=== PATIENT | male | born 2000 | race American Indian/Alaskan Native ===

== ENCOUNTER 2020-09-29 17:11 | Emergency (ER) | payer SELFPAY ==
[2020-09-29 17:29] VITALS: BP 120/69
--- NOTE | 2020-09-29 18:35 | Emergency Department Report ---
ED General Adult HPI - General Chief complaint: Eye Problems Stated complaint: IRRITATED LEFT EYE Time Seen by Provider: 09/29/20 18:28 Source: patient Mode of arrival: Ambulatory Limitations: No Limitations - History of Present Illness Initial comments: 20-year-old male patient presents emergency department with complaints of left eye redness/irritation with associated nasal congestion starting 3 days ago. No preceding fall, trauma, or injury. Patient does not wear contact lenses. He has no history of eye problems. No known sick contacts. Denies headache, diplopia, visual disturbance, cough, purulent drainage, pain with extraocular movements. Denies other complaints at this time. - Related Data Previous Rx's Medication Instructions Recorded Last Taken Type Erythromycin [Erythromycin Ophth 10 applic OP QID 5 Days #1 tube 09/29/20 Unknown Rx Oint] Allergies Allergy/AdvReac Type Severity Reaction Status Date / Time No Known Allergies Allergy Verified 09/29/20 17:29 ED Review of Systems ROS: Stated complaint: IRRITATED LEFT EYE Other details as noted in HPI Other: GENERAL: Negative for fever. EYES: Positive for redness/irritation. CARDIOVASCULAR: Negative for chest pain. PULMONARY: Negative for shortness of breath. GASTROINTESTINAL: Negative for abdominal pain. MUSCULOSKELETAL: Negative for back pain. NEUROLOGICAL: Negative for headache. INTEGUMENTARY: Negative for rash. ED Past Medical Hx - Past Medical History Previous Medical History?: No - Surgical History Past Surgical History?: No - Social History Smoking Status: Never Smoker Substance Use Type: None - Medications Home Medications: Home Medications Medication Instructions Recorded Confirmed Last Taken Type Erythromycin [Erythromycin Ophth 10 applic OP QID 5 Days #1 tube 09/29/20 Unknown Rx Oint] ED Physical Exam - General Limitations: No Limitations - Other Other exam information: General: Awake, appropriately interactive, no acute distress. Eyes: PERRL. Extraocular movements intact and painless. Conjugate gaze. Left conjunctival and sclera injection. No periorbital edema. No purulent discharge. Neck: Supple. Full range of motion intact. Cardiovascular: Normal peripheral perfusion. Pulmonary: No respiratory distress. Patient is speaking normally without use of accessory muscles. Skin: No apparent rashes or lesions. Neurological: No facial asymmetry. Speech is clear. Follows commands. Patient is alert and oriented. Musculoskeletal: Moves all four extremities spontaneously with normal range of motion. Psych: Cooperative. Appropriate mood and affect. ED Course Vital Signs 09/29/20 17:27 Temperature 99 F Pulse Rate 55 L Respiratory 20 Rate Blood Pressure 120/69 O2 Sat by Pulse 97 Oximetry ED Medical Decision Making - Medical Decision Making Differential diagnosis including but not limited to: conjunctivitis, glaucoma, foreign body, corneal abrasion subconjunctival hemorrhage, allergic rhinitis Patient presents to the emergency department with complaints of unilateral irritation/redness to his eye. No visual disturbance. Vital signs are stable. No preceding trauma. History and exam findings are consistent with acute conjunctivitis. Patient will be discharged home with prescription for antibiotic ointment and referred to local primary care provider for close outpatient follow-up. Patient expressed understanding is agreeable to plan of care. Disease transmission precautions discussed. Strict return precautions provided. History, exam, diagnostic testing, and current condition do not suggest w orrisome pathology to warrant further testing, continued ED treatment, admission, or surgical evaluation at this point. Given the low probability of a significant medical illness, it would be more likely to result in harm than benefit to perform further testing at this stage. Discussed findings, presumptive diagnosis, need for follow-up and specific signs/symptoms that should prompt immediate return to the emergency department. Instructions were explained in detail to the patient in addition to giving written discharge information. Patient expressed understanding and was given the opportunity to ask questions, all of which were satisfactorily answered prior to discharge home. Critical care attestation.: If time is entered above; I have spent that time in minutes in the direct care of this critically ill patient, excluding procedure time. ED Disposition Clinical Impression: Conjunctivitis Qualifiers: Conjunctivitis type: acute Acute conjunctivitis type: unspecified Laterality: left Qualified Code(s): H10.32 - Unspecified acute conjunctivitis, left eye Disposition: DC-01 TO HOME OR SELFCARE Is pt being admited?: No Does the pt Need Aspirin: No Condition: Stable Instructions: How to Use Eye Drops and Eye Ointments Additional Instructions: Use Erythromycin ointment as directed. Wash hands frequently. Change pillowcases and towels. Follow-up with your primary care provider this week. Call tomorrow to schedule an appointment. Return to the emergency department immediately for new or worsening symptoms. Prescriptions: Erythromycin [Erythromycin Ophth Oint] 10 applic OP QID 5 Days #1 tube Referrals: KLEBER WATKINS MD [Staff Physician] - 3-5 Days Time of Disposition: 18:34
== END 2020-09-29 20:10 | disposition home or self-care (01) ==
LOC: ED 17:11
DX: H10.32 Unspecified acute conjunctivitis, left eye (principal); Z79.899 Other long term (current) drug therapy
CPT/HCPCS: 99282